=== PATIENT | female | born 1985 ===

== ENCOUNTER 2018-06-06 16:14 | Emergency (ER) | payer OTHER ==
[2018-06-06 16:46] VITALS: BP 121/83; PULSE 60; RESP 18; TEMP 98.5; O2SAT 98
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
--- NOTE | 2018-06-06 17:33 | RAD ---
Date of service: 06/06/2018 PROCEDURE: Cervical Spine Radiographs. HISTORY: Pain. COMPARISON: None available. FINDINGS: Study is slightly limited due to poor visualization of the odontoid. The tip of the odontoid is obscured by occiput in the open-mouth projection and poorly delineated in the extended lopez view. BONES: No acute compression fractures no retropulsed fragments. Vertebral bodies exhibit relatively normal stature. Vertebral bodies are normally aligned. DISC SPACES: Minor posterior disc space narrowing seen at several levels with small marginal anterior and posterior osteophyte formation former slightly larger than latter. Mild overgrowth of the uncovertebral joints also noted... SOFT TISSUES: Normal. No prevertebral soft tissue swelling. OTHER FINDINGS: None. IMPRESSION: No acute fractures. Minor multilevel degenerative spondylosis.
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
== END 2018-06-06 17:55 | disposition home or self-care (01) ==
LOC: C.ER 16:14
DX: S93.402A Sprain of unspecified ligament of left ankle, initial encounter (principal); S13.4XXA Sprain of ligaments of cervical spine, initial encounter; V49.40XA Driver injured in collision with unspecified motor vehicles in traffic accident, initial encounter